=== PATIENT | male | born 1970 | race African-American/Black ===

== ENCOUNTER 2017-08-08 00:54 | Observation (INO) | payer OTHER ==
[~2017-08-08] VITALS: Ht 182.9 cm; Wt 88.9 kg
--- NOTE | ~2017-08-08 | EKG ---
[address] [address] ELECTROCARDIOGRAM REPORT Name: MILADISRAYMUNDO Spenser [id number] Admission: 08/08/17 Attend Phys: Moni Greer Discharge: 08/08/17 Date of : 66 Report #: [id number] THIS REPORT FOR: //name// [facility] ED Test Date: 2017-08-08 Test Time: 00:57:16 Pat Name: RAYMUNDO REDDING Department: Room: 211 Gender: [employer] In[employer]: MZOOK : 1970 Requested By: Ramos Mccollum Order Number: [id number] MD: Isaias Woodall Measurements Intervals [place] Rate: 108 P: 53 VT: 190 QRS: -36 QRSD: 67 T: 19 QT: 328 QTc: 440 Interpretive Statements Sinus tachycardia Left atrial enlargement Left axis deviation Compared to ECG 10/13/2013 02:28:50 Left-axis deviation now present Electronically Signed On 08-08-2017 17:33:26 CDT by Isaias Woodall [email or web address] <ELECTRONICALLY SIGNED> By: Isaias Woodall MD 08/08/17 1733 Isaias Woodall MD /EPI
--- NOTE | ~2017-08-08 | 2DMMODE ---
[facility] [address] [place] [address] 2 D/M-MODE ECHOCARDIOGRAM Name: RAYMUNDO REDDING Room #: 211-P [facility] IN ..#: [id number] Admission: 08/08/17 Attend Phys: Moni Lynn Discharge: Date of : 66 Date of Service: 08/08/17 0937 Report #: [id number] THIS REPORT FOR: //name// APPROVED REPORT Study performed: 08/08/2017 08:21:18 EXAM: Comprehensive 2D, Doppler, and color-flow Echocardiogram Patient Location: Bedside Room #: 211 Status: routine BSA: 2.11 HR: 86 bpm BP: 135/89 mmHg Other Information Study Quality: Good Indications Hypertension/HDD 2D Dimensions RVDd: 27.82 mm LVEF(%): 70.19 (>50%) IVSd: 13.99 (7-11mm) LVOT Diam: 21.89 (18-24mm) LVDd: 36.36 mm PWd: 14.06 (7-11mm) Ascending Ao: 32.30 (22-36mm) LVDs: 22.22 (25-40mm) Aortic Root: 31.61 mm IVC: 12.00 mm Ramesh's LVEF: 70.19 % Volumes Left Atrial Volume (Systole) Single Plane 4CH: 47.67 mL Single Plane 2CH: 48.12 mL LA ESV Index: 25.00 mL/m2 Aortic Valve AoV Peak Toño.: 1.36 m/s AO Peak Gr.: 7.37 mmHg LVOT Max P.63 mmHg LVOT Max V: 1.08 m/s TRUPTI Vmax: 2.98 cm2 Mitral Valve E/A Ratio: 1.1 MV Decel. Time: 237.81 ms MV E Max Toño.: 0.93 m/s [facility] [employer] [place] [address] 2 D/M-MODE ECHOCARDIOGRAM Name: RAYMUNDO REDDING Room #: 211-P [facility] IN ..#: [id number] Admission: 08/08/17 Attend Phys: Moni Lynn Discharge: Date of : 66 Date of Service: 08/08/17 0937 Report #: [id number] MV A Toño.: 0.85 m/s MV PHT: 68.96 ms IVRT: 59.98 ms Pulmonary Valve PV Peak Toño.: 0.96 m/s PV Peak Gr.: 3.70 mmHg Pulmonary Vein P Vein S: 0.39 m/s P Vein A: 0.21 m/s P Vein D: 0.26 m/s P Vein A Dur.: 73.8 msec P Vein S/D Ratio: 1.50 Tricuspid Valve TR Peak Toño.: 2.50 m/s TR Peak Gr.: 25.02 mmHg PA Pressure: 30.00 mmHg Left Ventricle The left ventricle is normal size. There is normal LV segmental wall motion. Mild concentric left ventricular hypertrophy. The left ventricular systolic function is normal. The left ventricular ejection fraction is within the normal range. LVEF is 65-70%. Grade I - abnormal relaxation pattern. Right Ventricle The right ventricle is normal size. The right ventricular systolic function is normal. Atria The left atrium size is normal. The right atrium size is normal. Aortic Valve The aortic valve is normal in structure. No aortic regurgitation is present. There is no aortic valvular stenosis. Mitral Valve The mitral valve is normal in structure. There is no mitral valve regurgitation noted. No evidence of mitral valve stenosis. Tricuspid Valve The tricuspid valve is normal in structure. There is trace tricuspid regurgitation. Estimated PAP 30 mmHg. There is no pulmonary hypertension. Pulmonic Valve [facility] [address] [place] [address] 2 D/M-MODE ECHOCARDIOGRAM Name: MILADISRAYMUNDO Room #: 211-P [facility]#: [id number] Admission: 08/08/17 Attend Phys: Moni Lynn Discharge: Date of : 66 Date of Service: 08/08/17 0937 Report #: [id number] The pulmonary valve is normal in structure. Trace pulmonic regurgitation. Great Vessels The aortic root is normal in size. IVC is normal in size and collapses >50% with inspiration. Pericardium There is no pericardial effusion. <Conclusion> The left ventricle is normal size. Mild concentric left ventricular hypertrophy. The left ventricular systolic function is normal. The right ventricle is normal size. The left atrium size is normal. The aortic valve is normal in structure. The mitral valve is normal in structure. There is trace tricuspid regurgitation. Estimated PAP 30 mmHg. <ELECTRONICALLY SIGNED> By: Peter Mustafa MD 08/08/17936 6 6 Peter Mustafa MD /INF
[~2017-08-08 00:54] MED LIST: ALBUTEROL INHAL17 GM; AMOXICILLIN 50500 M1 PO; FLONASE 0.05%50 MCG NASAL; HYDROCHLOROTHIA25 M1 PO; VENTOLIN17 GM INH; ZESTORETIC 20-1 EAC3 PO; ZPAK PO
[2017-08-08 00:56] VITALS: BP 161/100
[2017-08-08 01:43] LABS: HEMATOCRIT 43.2 % (42.0-52.0); HEMOGLOBIN 14.5 gm/dL (14.0-18.0); MCH 29.6 pg (26.0-34.0); MCHC 33.6 g/dL (28.0-37.0); PLATELET COUNT 182 thou/uL (150-400); RBC 4.91 mil/uL (4.50-6.00); RDW 12.6 % (10.5-14.5); WBC 5.8 thou/uL (4.0-11.0)
[2017-08-08 01:44] LABS: MANUAL DIFF YES
[2017-08-08 01:51] LABS: AMP/METHAMP Negative (Negative); ANION GAP 7 mmol/L (7-16); BARBITURATES Negative (Negative); BENZODIAZEPINES Negative (Negative); BUN 11 mg/dL (7-18); CALCIUM 9.2 mg/dL (8.5-10.1); CHLORIDE 104 mmol/L (98-107); CO2 29 mmol/L (21-32); COCAINE Negative (Negative); CREATININE 1.5 mg/dL (0.7-1.3); GLUCOSE 117 mg/dL (74-106); METHADONE Negative (Negative); OPIATES Negative (Negative); PCP Negative (Negative); POTASSIUM 3.8 mmol/L (3.5-5.1); SODIUM 140 mmol/L (136-145); THC Negative (Negative)
[2017-08-08 02:00] LABS: ALBUMIN 3.9 g/dL (3.4-5.0); ALKALINE PHOSPHATASE 66 U/L (46-116); MAGNESIUM 1.8 mg/dL (1.8-2.4); SGOT 32 U/L (15-37); SGPT 21 U/L (30-65); TOTAL BILIRUBIN 0.5 mg/dL (<0.1-1.0); TOTAL PROTEIN 7.3 g/dL (6.4-8.2); TROPONIN-I < 0.04 ng/mL (<0.04-0.07)
[2017-08-08 02:35] LABS: ATYPICAL LYMPHS 8 %; ATYPICAL MONONUCLEARS 2 %; LARGE PLATELETS OCCASIONAL; TOTAL CELL COUNT 100
[2017-08-08 02:46] VITALS: BP 158/105
[2017-08-08 02:58] VITALS: BP 143/104
[2017-08-08] MEDS ORDERED: CLARITIN10 MG PO (03:11)
[2017-08-08 04:03] VITALS: BP 135/89
[2017-08-08 04:30] LABS: CHOLESTEROL 249 mg/dL (<200); HDL CHOLESTEROL 63 mg/dL (>40); LDL CHOLESTEROL 169 mg/dL (<100); TRIGLYCERIDE 88 mg/dL (<150); VLDL 18 mg/dL (<40)
[2017-08-08 04:36] LABS: SERUM ASSESSMENT Clear
[2017-08-08 08:00] VITALS: BP 121/76
[2017-08-08] MEDS ORDERED: NORVASC10 MG PO (09:27)
[2017-08-08] MEDS ORDERED: ASPIR 8181 MG PO (09:27)
[2017-08-08] MEDS ORDERED: VENTOLIN HFA 1818 GM INH (09:28)
[2017-08-08 10:05] VITALS: BP 121/76
== END 2017-08-08 10:55 | disposition home or self-care (01) ==
LOC: ER 00:54 → EROBS 02:37 → 2N 02:57
PROVIDERS: Emergency Medicine; Nurse Practitioner Acute Care
DX: I10 Essential (primary) hypertension (principal); J45.909 Unspecified asthma, uncomplicated; E78.5 Hyperlipidemia, unspecified